=== PATIENT | female | born 1960 | race Caucasian/White ===

== ENCOUNTER 2018-02-13 22:29 | Inpatient (IN) | payer BC, OTHER ==
[2018-02-13] MEDS ORDERED: Adacel (T-DAP) 0.5 ML VIAL ONE (22:49)
[2018-02-13] MEDS ORDERED: Lidocaine 1% PF 5 ML VIAL ONE (23:08)
--- NOTE | 2018-02-14 01:36 | CT ---
HEAD CT WITHOUT CONTRAST: HISTORY: The patient tripped over a dog and fell onto pavement. Midline forehead laceration. COMPARISON: None. FINDINGS: Soft tissue injury involving the midline frontal scalp is noted. The underlying calvarium and the re mainder of the calvarium do not demonstrate any fracture. No radiopaque foreign bodies in the scalp. Adequate aeration of the sinuses and mastoid air cells. No parenchymal hemorrhage. There is slight asymmetry involving the left transverse sinus. Findings may represent an asymmetrically prominent sinus. However, a small subdural along the left tentorium cannot be excluded. Short-term follow-up CT is recommended. Cortical luna white matter differentiat ion is preserved. No evidence of hydrocephalus. IMPRESSION: 1. Post traumatic change involving the midline scalp. 2. Asymmetric hyperdensity involving the left tentorium. The possibility of a small subdural along the left tentorium cannot be excluded. Short-term follow-up CT is recommended. The results of the study were discussed with Dr. Cordero on 02/13/2018 at 11:17 p.m. CODE MICHELLE POS: IKE
[2018-02-14] MEDS ORDERED: traMADol HCl 50 MG TAB PO PRN ×2 (03:03)
[2018-02-14] MEDS ORDERED: Sodium Chloride 0.9% 1,000 ML IV SCH (03:03)
[2018-02-14] MEDS ORDERED: hydrALAZINE 20 MG/ML VIAL SLOW IVP PRN (03:03)
[2018-02-14] MEDS ORDERED: Ondansetron ODT 4 MG TAB PO PRN (03:03)
[2018-02-14] MEDS ORDERED: Ondansetron HCl/PF 4 MG/2 ML Vial IVP PRN (03:03)
[2018-02-14] MEDS ORDERED: Dextrose 5% in Water 1,000 ML IV PRN (03:03)
[2018-02-14] MEDS ORDERED: Dextrose 50% Abboject 50 ML SYRINGE SLOW IVP PRN (03:03)
[2018-02-14 03:17] VITALS: BMI 19.9
[2018-02-14] MEDS: Acetaminophen 500 MG TAB PO SCH ×2 (03:40→08:02)
--- NOTE | 2018-02-14 04:11 | HP ---
DATE OF ADMISSION: 02/14/2018 REQUESTING PHYSICIAN: Dr. Tobar. ATTENDING SURGEON: Dr. Jacob. CONSULTATION: Neurosurgery, Dr. Hernandez. HISTORY OF PRESENT ILLNESS: The patient is a 57-year-old woman who was walking outside of her house when she tripped or possibly was knocked over by one of her large dogs. She fell, striking her forehead, and according to her, she recalls falling down and getting back up immediately, but zhang d had "a short period of being unconscious." The patient was able to somewhat helped by her who put her in their vehicle and drove her to the [facility] ER where she underwent evalua tion and examination, and was noted to have a laceration to her forehead and according to CTA, a poss ible small subdural along the left tentorium. The patient was subsequently transferred from [facility] to our facility where she was placed in the IMCU for close observation, serial exams , and she will undergo a repeat CT at 0500 hours this morning. The patient currently denies dizzines s, lightheadedness, nausea, or vomiting prior to her fall. She denies all syncopal-type symptoms. ALLERGIES: None. MEDICATIONS: The patient does not recall her list. She knows that she takes hormone replacement and thyroid replacement medication. PAST SURGICAL HISTORY: Appendectomy, hysterectomy. PAST MEDICAL HISTORY: Hypothyroidism, hyperlipidemia. SOCIAL HISTORY: The patient lives at home with her spouse. She denies tobacco or drug use and occas ionally drinks wine. FAMILY MEDICAL HISTORY: High blood pressure. REVIEW OF SYSTEMS: Ten-point review of systems were negative, unless otherwise stated. PHYSICAL EXAMINATION: VITAL SIGNS: Temperature is 98.6, heart rate 79, blood pressure 143/78, respirations 16, oxygen satu ration 99% on room air. GENERAL: The patient is resting comfortably in the bed in the IMCU. She is awake, alert, and orient ed. Reji coma Scale is 15. The patient's chief complaint is she feels embarrassed to be here. HEENT: Head: The patient has laceration to the center of her forehead just starting at the hairline and tracing back that has been repaired with melany, otherwise the remainder of her head and scalp is unremarkable. Ears are atraumatic without discharge. Nose is atraumatic without discharge. Eyes : Extraocular motion intact. PERRLA bilaterally. Oropharynx is clear. NECK: Nontender. Trachea is midline. No JVD. CHEST: Clear to auscultation with good inspiratory and expiratory effort. HEART: Regular rate and rhythm. ABDOMEN: Soft, flat, nontender with active bowel sounds. Pelvis is stable. EXTREMITIES: Neurovascularly intact x4. BACK: Atraumatic and nontender. LABORATORY RESULTS: There are no labs drawn this morning. RADIOGRAPHS: CT of the head without contrast shows posttraumatic change involving the midline of the scalp. It also shows an asymmetric hyperdensity involving the left tentorium. The possibility of a small subdural along the left tentorium cannot be excluded. ASSESSMENT AND PLAN: 1. Status post ground level fall. 2. Scalp laceration repaired in the emergency department with melany. 3. Possible small subdural hematoma. 4. Pain secondary to trauma. Plan will be to repeat the patient's CT scan at 0500 hours as directed by Neurosurgery, nonnarcotic p ain management, clear liquid diet, and await decision by Neurosurgery. The evaluation and examinatio n will be discussed with Dr. Jacob after this dictation.
[2018-02-14] MEDS ORDERED: Famotidine 20 MG TAB PO SCH (09:00)
--- NOTE | 2018-02-14 09:31 | CT ---
PRELIMINARY REPORT/[facility]/EMERGENTY AFTER-HOURS PROCEDURE CT Head Without Intravenous Contrast EXAM DATE/TIME: 02/14/2018 5:17 AM CLINICAL HISTORY: 57 years old, female; Condition or disease; Aneurysm, cerebral; Patient HX: Repeat evaluation TECHNIQUE: Axial computed tomography images of the head/brain without intravenous contrast. All CT scans at this facility use at least one of these dose optimization techniques: automated exposure control; mA and/or kV adjustment per patient size (includes targeted exams where dose is matched to clinical jesús cation); or iterative reconstruction. COMPARISON: No relevant prior studies available. FINDINGS: Brain: See below. Ventricles: The ventricles are of normal size and configuration. There are no intra or extra-axial ma sses, lesions or collections. The luna white matter distinction is maintained throughout the brain. T here is no radiographic evidence of intracranial hemorrhage. Bones/joints: Unremarkable. No acute fracture. Soft tissues: Unremarkable. Sinuses: Unremarkable as visualized. No acute sinusitis. Mastoid air cells: Unremarkable as visualized. No mastoid effusion. IMPRESSION: No acute intracranial process is appreciated. No CT evidence of mass hemorrhage or acute infarction. Thank you for allowing us to participate in the care of your patient. Dictated and Authenticated by: Bradley Salazar MD 02/14/2018 6:40 AM Central Time ([place] & [place]) CT OF HEAD NONCONTRAST: Comparison: None. Indication: Intracranial hemorrhage, fall. FINDINGS: Not mentioned in the preliminary report, there is a grossly stable volume, although decreased density , with regard to small volume subdural hematoma along the leaflet of the left cerebellar tentorium. Minute linear density at the infralateral left frontal lobe could relate to a very small volume of he morrhage verses volume averaging of the adjacent left anterior cranial skull base. No mass effect or midline shift. There is left frontal scalp injury with overlying skin melany. IMPRESSION: 1. Stable volume, with slight decreased density of small subdural hematoma along the left cerebellar tentorium. 2. Minute linear density of the anterior left cranial fossa as discussed above. QD POS: IKE
[2018-02-14 11:33] VITALS: BP 137/80; TEMP 97.7
--- NOTE | 2018-02-14 12:04 | CON ---
DATE OF CONSULTATION: 02/14/2018. ATTENDING PHYSICIAN: Dr. José Miguel Hernandez. DATE OF ADMISSION: 02/14/2018. HISTORY OF PRESENT ILLNESS: The patient is a 57-year-old female with a past medical history of hyperlipidemia, hypothyroid, who presented to the emergency department after a mechanical fall. She reports she was in her yard when she believes she either was knocked over by a dog or tripped over a water hose. She has short period of LOC and has some difficulty remembering the event. She was brought to the emergency department where a CT head was done which showed small linear hyperdensity in the left tentorium concerning for possible small intracranial hemorrhage. Patient was awake, alert, in no acute distress. No focal neurologic deficits are present. I discussed the case with the ER physician and felt that she was appropriate for transition to [facility] where we can monitor overnight and repeat her head CT. I am seeing the patient at the bedside in the ICU. Again, she is awake and alert, in no acute distress. She has a GCS of 15 and no focal neurologic deficits. PAST MEDICAL HISTORY: Hypothyroidism and hyperlipidemia. MEDICATIONS: The patient has difficulty remembering her list, but she does report she takes daily baby aspirin. ALLERGIES: No known drug allergies. PAST SURGICAL HISTORY: Appendectomy and hysterectomy. SOCIAL HISTORY: The patient lives at home with her spouse. She does not smoke , drink or use any drugs. FAMILY HISTORY: Noncontributory. REVIEW OF SYSTEMS: Per HPI. PHYSICAL EXAMINATION: CONSTITUTIONAL: Patient is awake, alert, no acute distress. GCS 15. HEAD: She has a repaired laceration to the mid forehead. HEENT: Pupils equal and reactive to light. Extraocular movements intact. NECK: Nontender to palpation. Free active range of motion, no meningismus or nuchal rigidity. CARDIOVASCULAR: Regular rate and rhythm. LUNGS: The patient is breathing comfortably. Symmetric chest expansion. MUSCULOSKELETAL: Free active range of motion in all extremities, no deformities. NEUROLOGIC: She is A and O x4. GCS 15. No focal neurologic deficits. ASSESSMENT AND PLAN: The patient is admitted to the [facility] by Trauma Service where she will be monitored closely with frequent neuro checks. We will stop her aspirin. Head of the bed will be elevated at 30 degrees. We will plan to repeat a head CT. We discussed this plan with Dr. Hernandez who is in agreement. [facility]
--- NOTE | 2018-02-14 17:05 | PRG ---
The patient was seen and examined, agree with Alison Rosas's note. DATE OF SERVICE: 02/14/2018 HISTORY OF PRESENT ILLNESS: Ms. Adamson is a 57-year-old woman in reasonably good health, who had a mechanical fall. She is neurologically intact and currently has no complaints. She does have a sma ll laceration of the superior frontal scalp. On admission, CT scan suggested a trace subdural blood along the tentorium, although the findings were not definitive. A repeat scan showed similar finding s. IMPRESSION AND PLAN: I am not convinced the patient has had intracranial injury or that she has any subdural blood, but in any event, it certainly is not progressive and she is asymptomatic. She can b e safely discharged in my opinion. I have no plans for further clinical or radiographic followup unl ess her condition changes. I discussed this with the patient at length.
--- NOTE | 2018-02-14 21:57 | DIS ---
DATE OF ADMISSION: 02/14/2018 DATE OF DISCHARGE: 02/14/2018 ADMITTING PHYSICIAN: Devin Jacob M.D. DISCHARGING PHYSICIAN: Jovani Mahmood DO CONSULTANTS: José Miguel Hernandez M.D. with Neurosurgery. ADMITTING DIAGNOSES: 1. Status post fall. 2. Left cerebellar small volume subdural hematoma. DIAGNOSES ON DISCHARGE: 1. Status post fall. 2. Left cerebellar small volume subdural hematoma. HISTORY AND HOSPITAL COURSE: A 57-year-old woman who fell down from ground level position, sustainin g a mild traumatic brain injury. Workup included a CT scan of the brain, which was remarkable for sm all volume left cerebellar tentorium subdural hematoma. A repeat head CT scan reveals stable hemorrh age. The patient has remained hemodynamically and neurologically stable throughout this admission. Several hours after admission, she is ambulating with minimal difficulty. Her Reji coma scale is 15. She is tolerating oral intake. She ambulates with minimum difficulty. She has been evaluated b y speech and language pathologist, finding no cognitive deficits. She has also been evaluated and tr eated by Physical Therapy and discharged from their service. The patient is deemed fit for discharge home today with her . She is to follow up with Dr. Hernandez appointment, this follow up will be arranged through Dr. Hernandez's office. The patient requires no further follow up from Trauma Prakash rgery standpoint except for as needed. She has been given instructions with regards to traumatic bra in injury. She is to call with any questions or problems to Dr. Hernandez, especially with any increa sing headache, difficulty with ambulation or sleepiness. The patient and her indicate unders tanding of information given. I have answered their questions.
== END 2018-02-14 13:20 | disposition home or self-care (01) | DRG 87 ==
LOC: SCSER 22:29 → IMCU/EMU 02-14 02:43
PROVIDERS: ADMIT Specialist; ATTEND Specialist
PROC: 0HQ1XZZ Repair Face Skin, External Approach (ICD-10-PCS; principal; 2018-02-14)
PROC: 0HQ0XZZ Repair Scalp Skin, External Approach (ICD-10-PCS; 2018-02-14)
PROC: 3E0234Z Introduction of Serum, Toxoid and Vaccine into Muscle, Percutaneous Approach (ICD-10-PCS; 2018-02-14)
DX: S06.5X1A Traumatic subdural hemorrhage with loss of consciousness of 30 minutes or less, initial encounter (principal); R40.2142 Coma scale, eyes open, spontaneous, at arrival to emergency department; R40.2362 Coma scale, best motor response, obeys commands, at arrival to emergency department; R40.2252 Coma scale, best verbal response, oriented, at arrival to emergency department; S01.81XA Laceration without foreign body of other part of head, initial encounter; S01.01XA Laceration without foreign body of scalp, initial encounter; W01.0XXA Fall on same level from slipping, tripping and stumbling without subsequent striking against object, initial encounter; G89.11 Acute pain due to trauma; E78.5 Hyperlipidemia, unspecified; E03.9 Hypothyroidism, unspecified; Y92.096 Garden or yard of other non-institutional residence as the place of occurrence of the external cause; Z90.49 Acquired absence of other specified parts of digestive tract; Z23 Encounter for immunization; Z90.710 Acquired absence of both cervix and uterus; Z79.82 Long term (current) use of aspirin; Z79.890 Hormone replacement therapy; Z79.899 Other long term (current) drug therapy; Z82.49 Family history of ischemic heart disease and other diseases of the circulatory system
CPT/HCPCS: 12004; 70450; 90471; 90715; G9168-GN-CH; G9169-GN-CH; J2001